=== PATIENT | male | born 1970 | race Caucasian/White ===

== ENCOUNTER 2018-05-05 11:46 | Day surgery (SDC) | payer MEDICAID ==
[2018-05-05] MEDS ORDERED: LIDOCAINE 1% 20 ML VIAL (10MG/ML) FOR IV START INTRADERMA PRN (12:33)
[2018-05-05] MEDS ORDERED: LACTATED RINGERS 1,000 ML IV SCH (12:33)
[2018-05-05] MEDS ORDERED: LACTATED RINGERS 1,000 ML IV ONE (12:34)
[2018-05-05] MEDS ORDERED: LIDOCAINE 1% 20 ML VIAL (10MG/ML) FOR IV START INTRADERMA ONE (12:35)
[2018-05-05] MEDS ORDERED: PROPOFOL 10 MG/ML 20 ML VIAL IV ONE (12:36)
[2018-05-05] MEDS ORDERED: LIDOCAINE 1% INJ 10MG/ML (20 ML MDV) ONE (12:36)
[2018-05-05 12:38] VITALS: TEMP 97.2
[2018-05-05 12:45] LABS: Glucose,Whole Blood 130 mg/dL (75-99)
--- NOTE | 2018-05-05 12:45 | P.GSHP ---
History of Present Illness H&P Date: 05/05/18 Chief Complaint: Colon cancer screening Patient today for colonoscopy. No bowel related complaints. Family history of colon cancer in his grandmother. No previous colonoscopy. Past Medical History Past Medical History: Asthma, Diabetes Mellitus, GERD/Reflux, Hyperlipidemia, Hypertension, Prostate Disorder History of Any Multi-Drug Resistant Organisms: None Reported Past Surgical History: Adenoidectomy, Tonsillectomy Additional Past Surgical History / Comment(s): hemorrhoid/anal fissure surgery years ago Past Psychological History: Anxiety Smoking Status: Former smoker Past Alcohol Use History: Occasional Past Drug Use History: None Reported Medications and Allergies Home Medications Medication Instructions Recorded Confirmed Type Albuterol Sulfate [Proventil Hfa] 2 puff INHALATION Q6HR PRN 05/05/18 05/05/18 History Atorvastatin [Lipitor] 20 mg PO DAILY 05/05/18 05/05/18 History Dexlansoprazole [Dexilant] 1 tab PO DAILY 05/05/18 05/05/18 History Empagliflozin/Metformin HCl 2 tab PO DAILY 05/05/18 05/05/18 History [Synjardy Xr 12.5-1,000 mg Tab] Lisinopril [Prinivil] 10 mg PO DAILY 05/05/18 05/05/18 History Loratadine [Claritin] 10 mg PO DAILY 05/05/18 05/05/18 History Pioglitazone [Actos] 1 tab PO DAILY 05/05/18 05/05/18 History Tamsulosin [Flomax] 0.4 mg PO DAILY 05/05/18 05/05/18 History Ubidecarenone [Coenzyme Q10] 1 tab PO DAILY 05/05/18 05/05/18 History sitaGLIPtin PHOSPHATE [Januvia] 100 mg PO DAILY 05/05/18 05/05/18 History Allergies Allergy/AdvReac Type Severity Reaction Status Date / Time No Known Allergies Allergy Verified 05/05/18 12:16 Surgical - Exam Vital Signs Temp Pulse Resp BP Pulse Ox 97.2 F L 72 18 134/86 98 05/05/18 12:20 05/05/18 12:20 05/05/18 12:20 05/05/18 12:20 05/05/18 12:20 Physical exam: General: Well-developed, well-nourished HEENT: Normocephalic, sclerae nonicteric Abdomen: Nontender, nondistended Extremities: No edema Neuro: Alert and oriented Assessment and Plan (1) Colon cancer screening Narrative/Plan: Will proceed with colonoscopy Current Visit: Yes Status: Acute Code(s): Z12.11 - ENCOUNTER FOR SCREENING FOR MALIGNANT NEOPLASM OF COLON SNOMED Code(s): 674477534
--- NOTE | 2018-05-05 12:58 | P.PCN ---
Date of Procedure: 05/05/18 Procedure(s) Performed: PREOPERATIVE DIAGNOSIS: Colon cancer screening POSTOPERATIVE DIAGNOSIS: Mild diverticulosis, small rectal polyp, scarring from previous anorectal surgery PROCEDURE: Colonoscopy snare polypectomy ANESTHESIA: MAC SURGEON: Pranay Quiroga M.D. SPECIMENS: Rectal polyp ENDOSCOPIC PROCEDURE: The patient was placed on the endoscopy table in the left decubitus position. The Olympus colonoscope was inserted into the anus and passed under direct visualization to the base of the cecum. The appendiceal orifice was visualized. From that point the scope was slowly withdrawn inspecting all surfaces carefully. There were no neoplastic inflammatory or polypoid lesions throughout the cecum, ascending, transverse, descending, or sigmoid colon. Distally in the rectum a small polyp measuring approximately 5 mm was removed using the snare with cautery technique. This appeared to mostly be followed arise with that removal however a small portion was sent to pathology for evaluation. The remainder of the rectum was normal. There was mild left-sided diverticulosis present. Digital rectal examination revealed a normal prostate however some scarring posteriorly was identified from previous anorectal surgery. No fissure or fistula was seen. The patient was taken to the recovery room in stable condition per anesthesia guidelines. RECOMMENDATIONS: Await biopsy results. Anticipate follow-up colonoscopy 5-10 years.
[2018-05-05 13:02] VITALS: RESP 16
[2018-05-05 13:19] VITALS: BP 126/84; PULSE 75
== END 2018-05-05 13:35 | disposition home or self-care (01) ==
LOC: ORWHC2ENDO 11:46
PROVIDERS: ATTEND Surgery
DX: Z12.11 Encounter for screening for malignant neoplasm of colon (principal); K62.1 Rectal polyp; K57.30 Diverticulosis of large intestine without perforation or abscess without bleeding; Z80.0 Family history of malignant neoplasm of digestive organs; J45.909 Unspecified asthma, uncomplicated; E11.9 Type 2 diabetes mellitus without complications; K21.9 Gastro-esophageal reflux disease without esophagitis; E78.5 Hyperlipidemia, unspecified; I10 Essential (primary) hypertension; N42.9 Disorder of prostate, unspecified; F41.9 Anxiety disorder, unspecified; G47.33 Obstructive sleep apnea (adult) (pediatric); N40.0 Benign prostatic hyperplasia without lower urinary tract symptoms; Z79.84 Long term (current) use of oral hypoglycemic drugs; Z79.899 Other long term (current) drug therapy; Z87.891 Personal history of nicotine dependence
CPT/HCPCS: 88305; 45385; J2001; J2704

== ENCOUNTER → 2019-03-24 | Outpatient (CLI) | payer MEDICAID ==
--- NOTE | 2019-03-24 10:51 | XR ---
EXAMINATION TYPE: XR foot complete RT DATE OF EXAM: 03/24/2019 CLINICAL HISTORY: pain TECHNIQUE: Frontal, lateral and oblique images of the right foot are obtained. COMPARISON: None. FINDINGS: There is no acute fracture/dislocation evident. The joint spaces appear within normal castillo its. The overlying soft tissue appears unremarkable. IMPRESSION: There is no acute fracture or dislocation. ICD 10 NO FRACTURE, INITIAL EVALUATION
== END | disposition home or self-care (01) ==
LOC: RADXRMAIN 10:30
PROVIDERS: ATTEND Nurse Practitioner Women's Health
DX: M79.671 Pain in right foot (principal)

== ENCOUNTER 2021-05-14 10:18 | Emergency (ER) | payer MEDICAID ==
[2021-05-14 10:39] VITALS: RESP 18
--- NOTE | 2021-05-14 10:53 | ED ---
General Adult HPI - General Chief complaint: Upper Respiratory Infection Stated complaint: Covid+/BAM Time Seen by Provider: 05/14/21 10:19 Source: patient, RN notes reviewed, old records reviewed Mode of arrival: ambulatory Limitations: no limitations - History of Present Illness Initial comments: 51-year-old male presenting for cough, congestion. Patient was diagnosed with coronavirus at outside facility today. He's had symptoms for the past 4 days. No significant vomiting or diarrhea. Patient has had 3 total vaccines against coronavirus. - Related Data Home Medications Medication Instructions Recorded Confirmed Albuterol Sulfate [Proventil Hfa] 2 puff INHALATION Q6HR PRN 05/05/18 05/05/18 Atorvastatin [Lipitor] 20 mg PO DAILY 05/05/18 05/05/18 Dexlansoprazole [Dexilant] 1 tab PO DAILY 05/05/18 05/05/18 Empagliflozin/Metformin HCl 2 tab PO DAILY 05/05/18 05/05/18 [Synjardy Xr 12.5-1,000 mg Tab] Loratadine [Claritin] 10 mg PO DAILY 05/05/18 05/05/18 Tamsulosin [Flomax] 0.4 mg PO DAILY 05/05/18 05/05/18 Ubidecarenone [Coenzyme Q10] 1 tab PO DAILY 05/05/18 05/05/18 sitaGLIPtin PHOSPHATE [Januvia] 100 mg PO DAILY 05/05/18 05/05/18 Previous Rx's Medication Instructions Recorded Lisinopril [Prinivil] 10 mg PO DAILY #90 tab 07/02/19 Pioglitazone [Actos] 1 tab PO DAILY #90 tab 07/02/19 Allergies Allergy/AdvReac Type Severity Reaction Status Date / Time No Known Allergies Allergy Verified 05/14/21 10:39 Review of Systems ROS Statement: Those systems with pertinent positive or pertinent negative responses have been documented in the HPI. ROS Other: All systems not noted in ROS Statement are negative. Past Medical History Past Medical History: Asthma, Diabetes Mellitus, GERD/Reflux, Hyperlipidemia, Hypertension, Prostate Disorder History of Any Multi-Drug Resistant Organisms: None Reported Past Surgical History: Adenoidectomy, Tonsillectomy Additional Past Surgical History / Comment(s): hemorrhoid/anal fissure surgery years ago Past Psychological History: Anxiety Smoking Status: Former smoker Past Alcohol Use History: Occasional Past Drug Use History: None Reported General Exam Limitations: no limitations General appearance: alert, in no apparent distress Head exam: Present: atraumatic, normocephalic Eye exam: Present: normal appearance, PERRL ENT exam: Present: normal exam Neck exam: Present: normal inspection Respiratory exam: Present: normal lung sounds bilaterally. Absent: respiratory distress, wheezes Cardiovascular Exam: Present: regular rate, normal rhythm GI/Abdominal exam: Present: soft. Absent: distended, tenderness Extremities exam: Present: normal inspection, normal capillary refill. Absent: pedal edema Neurological exam: Present: alert, oriented X3, CN II-XII intact, normal gait. Absent: motor sensory deficit Psychiatric exam: Present: normal affect, normal mood Skin exam: Present: warm, dry, intact. Absent: cyanosis, diaphoretic Course Vital Signs 05/14/21 10:34 Temperature 98.6 F Pulse Rate 84 Respiratory 18 Rate Blood Pressure 121/91 O2 Sat by Pulse 97 Oximetry Medical Decision Making - Medical Decision Making 51-year-old male presenting with coronavirus, patient does meet for monoclonal antibody infusion. He is transfused in the emergency department. Disposition Clinical Impression: COVID-19 Disposition: HOME SELF-CARE Condition: Good Instructions (If sedation given, give patient instructions): Coronavirus Disease 2019 (COVID-19) Is patient prescribed a controlled substance at d/c from ED?: No Referrals: None,Stated [Primary Care Provider] - 1-2 days Time of Disposition: 10:53
[2021-05-14] MEDS ORDERED: BAMLANIVIMAB (EUA) 700 MG, ETESEVIMAB (EUA) 1,400 MG in SODIUM CHLORIDE 0.9% 100 ML IVPB ONE (11:00)
[2021-05-14] MEDS ORDERED: SODIUM CHLORIDE 0.9% 50 ML IVPB ONE (11:30)
[2021-05-14 12:23] VITALS: PULSE 81
[2021-05-14 13:16] VITALS: BP 113/81; TEMP 97.7
== END 2021-05-14 13:16 | disposition home or self-care (01) ==
LOC: EC 10:18
DX: U07.1 COVID-19 (principal); J45.909 Unspecified asthma, uncomplicated; E11.9 Type 2 diabetes mellitus without complications; K21.9 Gastro-esophageal reflux disease without esophagitis; E78.5 Hyperlipidemia, unspecified; I10 Essential (primary) hypertension; Z79.899 Other long term (current) drug therapy; Z79.84 Long term (current) use of oral hypoglycemic drugs; Z87.891 Personal history of nicotine dependence
CPT/HCPCS: 99283; J3490

== ENCOUNTER → 2021-10-30 | Outpatient (CLI) | payer MEDICAID ==
[2021-10-30 08:18] LABS: African American GFR (CKD) >90 (>60 ml/min/1.73 sqM); Blood Urea Nitrogen 21 mg/dL (9-20); Non-African American GFR(CKD) 78 (>60 ml/min/1.73 sqM)
--- NOTE | 2021-10-30 11:44 | CT ---
EXAMINATION TYPE: CT neck chest w/wo con DATE OF EXAM: 10/30/2021 COMPARISON: None HISTORY: Vocal cord paralysis CT DLP: 3620.6 mGycm, Automated exposure control for dose reduction was used. CONTRAST: Performed injected with 100 mL of Isovue 300. TECHNIQUE: Axial images were obtained at 5 mm thick sections. Reconstructed images are reviewed on [employer] computer in the coronal plane. FINDINGS: Portion of the thyroid visualized is normal. No suspicious lung nodules or focal infiltrates are present. Tracheobronchial tree appears normal. No enlarged mediastinal or hilar adenopathy is evident. Aortopulmonic window appears normal. The asc ending aorta diameter at the level of the main pulmonary artery is 3.3 cm. The main pulmonary artery diameter at the bifurcation is 2.[address] sections are obtained through the upper abdomen. There may be some calcification in the arenas perior pole right kidney. No obstruction is evident. This could be early excretion of contrast. IMPRESSIONS: 1. Normal Chest CT. EXAMINATION TYPE: CT neck chest w/wo con DATE OF EXAM: 10/30/2021 COMPARISON: None HISTORY: Vocal cord paralysis CT DLP: 3620.6 mGycm CONTRAST: Patient injected with 100 mL of Isovue 300. TECHNIQUE: Axial images at 3 mm thick sections. Reconstructed images in the coronal plane and sagitt al plane are reviewed. FINDINGS: Limited CT sections are obtained the lung apices. The lung apices appear clear. CT neck: The torus tubarius and fossa of Rosenmuller are normal. Filter Washer spaces are normal. Ther e is a mucous retention cyst within the right maxillary sinus. Sphenoid and ethmoid air cells appear clear. Mastoid air cells appear clear. Parotid glands appear normal and symmetrical. Submandibular glands, are normal. Parapharyngeal spac es are normal. No suspicious adenopathy is evident. The hypopharynx appears within normal limits. There may be mild medial deviation of the anterior right vocal cord. Vocal cord level otherwise appea rs unremarkable. Subglottic airway appears unremarkable. The hypopharynx is not well-visualized. Disc rete underlying mass is not identified. Thyroid as visualized is normal. Osseous structures are normal. IMPRESSIONS: 1. Mild asymmetry of the vocal cord level. No specific etiology. Hypopharynx appears largely collapse d during the timing of this examination.
== END | disposition home or self-care (01) ==
LOC: RADCTMAIN 07:45
PROVIDERS: ATTEND Otolaryngology
DX: R13.10 Dysphagia, unspecified (principal); R49.0 Dysphonia; J38.01 Paralysis of vocal cords and larynx, unilateral
CPT/HCPCS: 82565; 84520; 70492; 71270; 36415; Q9967

== ENCOUNTER → 2022-04-02 | Outpatient (CLI) | payer MEDICAID | END | disposition home or self-care (01) | LOC: LABWHC1 08:34 | PROVIDERS: ATTEND Family Medicine | DX: Z53.9 Procedure and treatment not carried out, unspecified reason (principal) ==

== ENCOUNTER → 2023-08-24 | Day surgery (SDC) | payer MEDICAID ==
[2023-08-23 08:31] VITALS: BMI 32.9
[~2023-08-24] MED LIST: LACTATED RINGERS 1,000 ML IV SCH; LIDOCAINE 1% INJ 10MG/ML (20 ML MDV) ONE; PROPOFOL 10 MG/ML 20 ML VIAL IV ONE; fentaNYL (PF) 50 MCG/ML 2 ML AMP ONE
[2023-08-24] MEDS: LACTATED RINGERS 1,000 ML IV ONE (07:11)
[2023-08-24 07:15] VITALS: TEMP 97
[2023-08-24 07:26] LABS: Glucose,Whole Blood 108 mg/dL (70-110)
--- NOTE | 2023-08-24 08:10 | P.GSHP ---
History of Present Illness H&P Date: 08/24/23 Chief Complaint: Epigastric pain, screening 53-year-old male here for upper and lower endoscopy. Patient having some upper abdominal discomfort recently. History of chronic reflux on PPIs for 20 years. No dysphagia. No bowel complaints. Family history of colon cancer in grandmother. Had a small polyp in the rectum last visit 5 years ago. Biopsies negative. Past Medical History Past Medical History: Asthma, Diabetes Mellitus, GERD/Reflux, Hyperlipidemia, Hypertension, Prostate Disorder Additional Past Medical History / Comment(s): Enlarged prostate. Type II diabetic. NIDDM History of Any Multi-Drug Resistant Organisms: None Reported Past Surgical History: Adenoidectomy, Tonsillectomy Additional Past Surgical History / Comment(s): hemorrhoid/anal fissure surgery years ago Past Anesthesia/Blood Transfusion Reactions: No Reported Reaction, Motion Sickness Additional Past Anesthesia/Blood Transfusion Reaction / Comment(s): No hx of blood transfusion. Smoking Status: Former smoker - Past Family History Mother Family Medical History: Cancer Additional Family Medical History / Comment(s): Maternal grandmother colon. Father Family Medical History: Cancer Additional Family Medical History / Comment(s): Leukemia Medications and Allergies Home Medications Medication Instructions Recorded Confirmed Type Albuterol Sulfate [Proventil Hfa] 2 puff INHALATION Q6HR PRN 05/05/18 08/24/23 History Atorvastatin [Lipitor] 20 mg PO QAM 05/05/18 08/24/23 History Empagliflozin/Metformin HCl 2 tab PO QAM 05/05/18 08/24/23 History [Synjardy Xr 12.5-1,000 mg Tab] Tamsulosin [Flomax] 0.4 mg PO QAM 05/05/18 08/24/23 History Ubidecarenone [Coenzyme Q10] 1 tab PO QAM 05/05/18 08/24/23 History Lansoprazole [Prevacid] 30 mg PO QAM 08/23/23 08/24/23 History Levocetirizine Dihydrochloride 5 mg PO QAM 08/23/23 08/24/23 History [Xyzal] Magnesium ((Unknown Dose) 1 dose PO QAM 08/23/23 08/24/23 History Montelukast [Singulair] 10 mg PO QAM 08/23/23 08/24/23 History Multivitamin (Unknown Dose) 1 dose PO QAM 08/23/23 08/24/23 History Semaglutide [Ozempic] 2 mg SQ WEEKLY 08/23/23 08/24/23 History lisinopriL [Prinivil] 10 mg PO QAM 08/23/23 08/24/23 History Allergies Allergy/AdvReac Type Severity Reaction Status Date / Time No Known Allergies Allergy Verified 08/24/23 07:16 Surgical - Exam Vital Signs Temp Pulse Resp BP Pulse Ox 97 F L 77 16 130/84 99 08/24/23 07:13 08/24/23 07:13 08/24/23 07:13 08/24/23 07:13 08/24/23 07:13 Physical exam: General: Well-developed, well-nourished HEENT: Normocephalic, sclerae nonicteric Abdomen: Nontender, nondistended Extremities: No edema Neuro: Alert and oriented Assessment and Plan (1) Colon cancer screening Narrative/Plan: Will proceed with upper and lower endoscopy Current Visit: No Status: Acute Code(s): Z12.11 - ENCOUNTER FOR SCREENING FOR MALIGNANT NEOPLASM OF COLON SNOMED Code(s): 809855691
--- NOTE | 2023-08-24 08:31 | P.PCN ---
Date of Procedure: 08/24/23 Procedure(s) Performed: PREOPERATIVE DIAGNOSIS: Epigastric pain, chronic GERD, colon cancer screening with history of polyp POSTOPERATIVE DIAGNOSIS: Mild gastritis, small gastric polyp, small hiatal hernia, descending colon polyp, rectal polyp, diverticulosis PROCEDURE: 1. EGD with biopsy 2. Colonoscopy with snare polypectomy ANESTHESIA: MAC SURGEON: Pranay Quiroga M.D. SPECIMENS: Antrum, gastric polyp, ENDOSCOPIC PROCEDURE: The patient was on the endoscopy table in the left decubitus position. The Olympus gastroscope was inserted into the oropharynx and passed under direct visualization to the region of the third portion of the duodenum. From that point the scope was slowly withdrawn inspecting all surfaces carefully. There were no neoplastic inflammatory or polypoid lesions throughout the duodenum. The pylorus was widely patent. The stomach was carefully inspected. There was mild gastritis present. A biopsy of the antrum took place to rule out H. pylori. Retroflexion revealed a small sliding hiatal hernia. GE junction was present 1 cm above the diaphragmatic hiatus. The GE junction was free of any significant inflammatory changes. The remainder the esophagus was examined and appeared normal. The patient was kept on the endoscopy table in the left decubitus position. The Olympus colonoscope was inserted into the anus and passed under direct visualization to the base of the cecum. The appendiceal orifice was visualized. From that point the scope was slowly withdrawn inspecting all surfaces carefully. There were no neoplastic inflammatory or polypoid lesions throughout the cecum, ascending, and transverse colon. A small polyp in the descending colon was noted and removed using the snare with cautery technique. The remainder of the descending and sigmoid appeared normal. In the rectum distally a small polyp was removed using the cold snare technique. The patient had minimal left-sided diverticulosis noted as well. Digital rectal examination was normal. The patient was taken to the recovery room in stable condition per anesthesia guidelines. RECOMMENDATIONS: Await biopsy results. Continue antiacid therapy. Anticipate repeat colonoscopy 5 to 7 years.
[2023-08-24 08:48] LABS: Glucose,Whole Blood 124 mg/dL (70-110)
[2023-08-24 09:34] VITALS: BP 107/71; PULSE 66; RESP 16
== END ==
LOC: ORWHC2ENDO 07:03
PROVIDERS: ATTEND Surgery
DX: Z12.11 Encounter for screening for malignant neoplasm of colon (principal); D12.4 Benign neoplasm of descending colon; K29.50 Unspecified chronic gastritis without bleeding; K31.7 Polyp of stomach and duodenum; K44.9 Diaphragmatic hernia without obstruction or gangrene; K62.1 Rectal polyp; K21.9 Gastro-esophageal reflux disease without esophagitis; J45.909 Unspecified asthma, uncomplicated; I10 Essential (primary) hypertension; G89.29 Other chronic pain; E78.5 Hyperlipidemia, unspecified; E11.9 Type 2 diabetes mellitus without complications; N40.0 Benign prostatic hyperplasia without lower urinary tract symptoms; Z79.84 Long term (current) use of oral hypoglycemic drugs; Z80.0 Family history of malignant neoplasm of digestive organs; Z87.891 Personal history of nicotine dependence; Z86.010 Personal history of colon polyps; Z79.899 Other long term (current) drug therapy
CPT/HCPCS: 88305; 45385; 43239; J2001; J3010; J2704

== ENCOUNTER → 2023-12-07 | Outpatient (CLI) | payer MEDICAID | END | disposition home or self-care (01) | LOC: LABPRL 13:37 | PROVIDERS: ATTEND Family Medicine | DX: Z01.812 Encounter for preprocedural laboratory examination (principal); L03.316 Cellulitis of umbilicus | CPT/HCPCS: 80053; 83036; 85025; 87075 ==

== ENCOUNTER → 2023-12-08 | Outpatient (CLI) | payer MEDICAID ==
--- NOTE | 2024-01-11 14:00 | CT ---
[id number] DENISE MELENDEZ : 1970 EXAM: CT abdomen pelvis with IV contrast. . DATE: 12/08/2023 17:37 INDICATION: K42.9 UMBILICAL HERNIA concern for incarceration. COMPARISON: None, please note PACS downtime occurred during the radiologist interpretation of these i mages with limited priors/reports.. TECHNIQUE: BD Bone Density DEXA Ana Skeleton, with axial imaging and sagittal and coronal reformats following th e administration of 100 cc of Isovue 300 IV contrast material.. One or more CT dose reduction strateg ies were utilized during this examination. Total DLP administered was 1832 mGycm. FINDINGS: LOWER CHEST: Unremarkable ABDOMEN LIVER: Diffusely hypoattenuating parenchyma. GALLBLADDER AND BILE DUCTS: Unremarkable. PANCREAS: Unremarkable. SPLEEN: Unremarkable. ADRENAL GLANDS: Unremarkable. KIDNEYS AND URETERS: No evidence of hydronephrosis or renal calculus. The ureters are unremarkable. PELVIS BLADDER: Unremarkable REPRODUCTIVE: Prostate is enlarged in size measuring 4.8 cm in transverse dimension. ABDOMEN & PELVIS STOMACH AND BOWEL: Moderate amount of stool seen throughout the colon. The appendix is normal. Scatte red colonic diverticula. Stomach and duodenum are unremarkable. No evidence of bowel obstruction. PERITONEUM: No evidence of pneumoperitoneum or free fluid. Nonspecific elenita mesentery. VASCULATURE: No evidence of aortic aneurysm. MUSCULOSKELETAL: No acute osseous abnormalities LYMPH NODES: No gross evidence for lymphadenopathy. SOFT TISSUE/ABDOMINAL WALL: Tiny fat-containing umbilical hernia. There is minimal inflammation fat s tranding around the umbilicus subcutaneous tissues. There may be mild skin thickening around the umbi licus measuring up to 3 mm. IMPRESSION: 1. Minimal cellulitis change around the umbilicus subcutaneous tissues. Tiny fat-containing umbilica l hernia without inflammation to suggest infarcted omentum. 2. 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 3. Hepatic steatosis. 4. Moderate amount of stool throughout colon. 5. Prostatomegaly, correlate with serum PSA. [facility], , 01/11/2024 1:57 PM
== END | disposition home or self-care (01) ==
LOC: RADCTMAIN 14:10
PROVIDERS: ATTEND Surgery
DX: N40.0 Benign prostatic hyperplasia without lower urinary tract symptoms (principal); K76.0 Fatty (change of) liver, not elsewhere classified; R19.5 Other fecal abnormalities
CPT/HCPCS: 74177; Q9967

== ENCOUNTER → 2024-01-10 | Outpatient (CLI) | payer MEDICAID ==
--- NOTE | 2024-01-10 13:37 | XR ---
EXAMINATION TYPE: XR chest 2V DATE OF EXAM: 01/10/2024 COMPARISON: 08/18/2013 HISTORY: 53-year-old male R06.02 J98.01 R06.2, residual cough TECHNIQUE: Frontal and lateral views FINDINGS: The cardiomediastinal silhouette, aorta, and pulmonary vasculature are within normal limits. Mild int erstitial prominence is unchanged period otherwise, lungs and pleural spaces are clear. IMPRESSION: Chronic changes. No acute process seen. [facility], , 01/10/2024 1:34 PM
== END | disposition home or self-care (01) ==
LOC: RADXRMAIN 13:11
PROVIDERS: ATTEND Family Medicine
DX: R06.02 Shortness of breath (principal); J98.01 Acute bronchospasm; R06.2 Wheezing
CPT/HCPCS: 71046

== ENCOUNTER → 2024-08-24 | Outpatient (CLI) | payer MEDICAID ==
[2024-08-24 15:41] LABS: Basophils # (A) 0.09 X 10*3/uL (0.00-0.10); Basophils % (A) 1.2 %; Eosinophils # (A) 0.17 X 10*3/uL (0.04-0.35); Eosinophils % (A) 2.3 %; HCT 49.1 % (39.6-50.0); HGB 16.7 g/dL (13.0-17.0); Lymphocytes # (A) 1.66 X 10*3/uL (0.90-5.00); Lymphocytes % (A) 22.7 %; MCH 29.3 pg (27.0-32.0); MCV 86.3 FL (80.0-97.0); Mean Platelet Volume 11.7 FL (9.5-12.2); Monocytes # (A) 0.63 X 10*3/uL (0.20-1.00); Monocytes % (A) 8.6 %; NRBC Per 100 WBC 0 X 10*3/uL (0.00-0.01); Neutrophils # (A) 4.75 X 10*3/uL (1.80-7.70); Neutrophils % (A) 64.9 %; Platelet Count 167 X 10*3/uL (140-440); RBC 5.69 X 10*6/uL (4.40-5.60); RDW 12.2 % (11.5-14.5); WBC 7.32 X 10*3/uL (4.50-10.00)
[2024-08-24 16:13] LABS: ALT 42 U/L (10-49); AST 32 U/L (14-35); Albumin 4.5 g/dL (3.8-4.9); Albumin/Globulin Ratio 1.96 Ratio (1.60-3.17); Alkaline Phosphatase 91 U/L (41-126); Blood Urea Nitrogen 20.1 mg/dL (9.0-27.0); Calcium 9.2 mg/dL (8.7-10.3); Carbon Dioxide 22.3 mmol/L (21.6-31.8); Chloride 103 mmol/L (96-109); Chol/HDL Ratio 2.69 Ratio; Globulin 2.3 g/dL (1.6-3.3); Glucose 113 mg/dL (70-110); LDL Cholesterol,Calculated 46.4 mg/dL (0.0-131.0); PSA Annual Screen 0.594 ng/mL (0.000-4.000); Potassium 4.4 mmol/L (3.5-5.5); Sodium 138 mmol/L (135-145); Total Bilirubin 0.9 mg/dL (0.3-1.2); Total Protein 6.8 g/dL (6.2-8.2)
== END | disposition home or self-care (01) ==
LOC: LABWHC1 08:47
DX: Z00.00 Encounter for general adult medical examination without abnormal findings (principal); Z12.5 Encounter for screening for malignant neoplasm of prostate; E11.9 Type 2 diabetes mellitus without complications; N40.0 Benign prostatic hyperplasia without lower urinary tract symptoms; Z79.899 Other long term (current) drug therapy
CPT/HCPCS: 80061; 80053; 84443; 85025; 83036; 36415; G0103